=== PATIENT | male | born 1995 | race Caucasian/White ===

== ENCOUNTER 2017-08-24 08:50 | Observation (INO) ==
[2017-08-24] MEDS ORDERED: 0.9 % Sodium Chloride 1,000 ML IVC ONE ×2 (08:59→10:27)
[2017-08-24] MEDS ORDERED: *HR* LORazepam 2 MG/ML VIAL IVP ONE ×4 (09:00→10:51)
--- NOTE | 2017-08-24 09:01 | Emergency Department Note ---
Disposition Clinical Impression: Rhabdomyolysis Qualifiers: Rhabdomyolysis type: traumatic Encounter type: initial encounter Qualified Code (s): T79.6XXA - Traumatic ischemia of muscle, initial encounter Alcohol intoxication Qualifiers: Complication of substance-induced condition: uncomplicated Qualified Code(s): F10.920 - Alcohol use, unspecified with intoxication, uncomplicated Disposition: Admitted As Inpatient Condition: Fair General Adult HPI - General Chief complaint: ED Overdose Stated complaint: OD Source: EMS Nursing Notes Reviewed: Yes Vital Signs Reviewed: Yes - History of Present Illness HPI Narrative: 21-year-old male presents emergency department with concern for being found down. Patient was found lying on the ground this morning. Unknown amount of time being down. Patient was sluggish to respond so EMS gave patient 2 mg of Narcan. Stated that he did not have much of response to that, but did become a little more alert. Patient alert now [facility] EMS and has been speaking comfortably per them. EMS place still intoxicated. Patient states he is not hurting anywhere. Denies any his head. He does not remember what happened though. States he drinks alcohol but denies any drug use. Pain Scale: 0 - Related Data Home Medications Medication Instructions Recorded Confirmed No Known Home Drugs 08/24/17 08/24/17 Allergies Allergy/AdvReac Type Severity Reaction Status Date / Time Penicillins Allergy Rash Verified 08/24/17 09:16 All systems ED: reviewed and negative except as stated. Review of Systems: As Per HPI Constitutional: Denies: fever Cardiovascular: Denies: chest pain, palpitations Respiratory: Denies: cough, dyspnea Gastrointestinal: Denies: abdominal pain, nausea, vomiting Genitourinary: Denies: urgency, dysuria, frequency Musculoskeletal: Denies: back pain Neurological: Denies: headache Past Medical History - Past Medical History Medical history: Reports: no medical history Psychiatric history: Reports: no psych history - Social History Smoking Status: Current every day smoker Physical Exam - General General appearance: alert, appears intoxicated - Head Head exam: atraumatic, normocephalic - Eye Eye exam: Present: PERRL, EOMI - ENT ENT exam: normal exam, normal oropharynx - Neck Neck exam: Present: trachea midline - Chest Chest inspection: Present: normal inspection, symmetric chest wall rise - Respiratory Respiratory exam: Present: normal lung sounds bilaterally. Absent: respiratory distress - Cardiovascular Cardiovascular exam: Present: normal rhythm, tachycardia - Neurological Exam Neurological exam: Present: alert, CN II-XII intact, other (GCS 14 alert and oriented to person and place, but not time) - Skin Skin exam: Present: warm, dry, intact Course Vital Signs Temperature 99 F 08/24/17 08:52 Pulse Rate 126 08/24/17 08:52 Respiratory Rate 18 08/24/17 08:52 Blood Pressure 127/101 08/24/17 08:52 O2 Sat by Pulse Oximetry 95 08/24/17 08:52 Temperature 98.2 F 08/24/17 11:47 Pulse Rate 116 08/24/17 11:47 Respiratory Rate 15 08/24/17 11:47 Blood Pressure 121/73 08/24/17 11:47 O2 Sat by Pulse Oximetry 94 08/24/17 11:48 Oxygen Delivery Oxygen Delivery Room Air Medical Decision Making - MDM Narrative Medical decision making narrative: 21-year-old male presents emergency department with concern for altered mental status. Patient was alert and oriented to person and place, but not time. Patient was able to protect airway. He was able to handle his secretions. No focal neurologic deficits. CT of the head and neck were obtained and were within normal limits. C-spine precautions were started prior to exam and patient's C-spine was cleared. Chest x-ray was negative for any signs of ischemia. Patient was tachycardic here. We gave fluids. Patient has serum creatinine kinase that was elevated at 1291. Creatinine function was normal. Mild elevations of his AST which would be consistent with acute ethanol ingestion. EtOH was 306. Patient was admitted for both altered mental status and intoxication as well as rhabdomyolysis. Hospitalist agrees that admission. Told the patient of him needing to be admitted. Patient was agitated at times in the emergency department. We did give him Ativan at times. Patient was given 2 L of normal saline here in the emergency department Cervical Spine CT 08/24/17 08:56 IMPRESSION: No acute abnormality of the cervical spine. D/ / Obinna Alanis MD / Obinna Alanis MD Interpreting Provider: Obinna Alanis MD Head CT 08/24/17 08:56 IMPRESSION: Negative CT brain with no acute intracranial abnormality. Incidental right maxillary sinus disease as described. D/ / Abhishek Palumbo MD / Abhishek Palumbo MD Interpreting Provider: Abhishek Palumbo MD Chest X-Ray 08/24/17 08:57 IMPRESSION: Unremarkable chest. D/ / Abhishek Palumbo MD / Abhishek Palumbo MD Interpreting Provider: Abhishek Palumbo MD Vital Signs Temperature 99 F 08/24/17 08:52 Pulse Rate 126 08/24/17 08:52 Respiratory Rate 18 08/24/17 08:52 Blood Pressure 127/101 08/24/17 08:52 O2 Sat by Pulse Oximetry 95 08/24/17 08:52 Temperature 98.2 F 08/24/17 11:47 Pulse Rate 116 08/24/17 11:47 Respiratory Rate 15 08/24/17 11:47 Blood Pressure 121/73 08/24/17 11:47 O2 Sat by Pulse Oximetry 94 08/24/17 11:48 Oxygen Delivery Oxygen Delivery Room Air - Lab Data Result diagrams: 08/24/17 09:19 08/24/17 09:19 Lab Results 08/24/17 08/24/17 08/24/17 Range/Units 09:09 09:09 09:19 WBC 8.9 (4.3-11.1) K/mcL RBC 5.13 (4.19-5.50) M/mcL Hgb 16.0 (12.9-16.9) g/dL Hct 45.1 (37.5-50.1) % MCV 87.9 (83.0-100.0) fL MCH 31.2 (28.0-33.3) pg MCHC 35.5 (31.6-35.5) g/dL RDW 12.9 (11.5-14.5) % Plt Count 305 (140-400) K/mcL MPV 9.4 (9.4-12.4) fL Immature Gran % 0.3 (0-4) % Seg Neutrophils % 75.9 % Lymphocytes % 16.7 % Monocytes % 5.7 % Eosinophils % 0.5 % Basophils % 0.9 % Neutrophils # 6.7 (1.6-8.9) K/mcL Lymphocytes # 1.5 (0.6-4.6) K/mcL Monocytes # 0.5 (0.0-1.3) K/mcL Eosinophils # 0.0 (0.0-0.6) K/mcL Basophils # 0.1 (0.0-0.2) K/mcL PT (9.4-12.1) Seconds INR D-Dimer (0-500) ng/mLFEU Sodium (136-145) mEq/L Potassium (3.5-5.1) mEq/L Chloride (98-107) mEq/L Carbon Dioxide (23-29) mEq/L BUN (6-20) mg/dL Creatinine (0.70-1.30) mg/dL Est GFR ( Amer) (> 60) Est GFR (Non-Af Amer) (> 60) BUN/Creatinine Ratio (6-26) Glucose (70-105) mg/dL Calculated Osmolality (280-300) Calcium (8.6-10.3) mg/dL Phosphorus (2.7-4.5) mg/dL Magnesium (1.6-2.6) mg/dL Total Bilirubin (0.3-1.0) mg/dL AST (13-39) Units/L ALT (7-52) Units/L Alkaline Phosphatase (34-104) Units/L Creatine Kinase (30-223) Units/L Serum Total Protein (6.4-8.9) g/dL Albumin (3.5-5.7) g/dL Globulin (2.4-3.5) g/dL Albumin/Globulin Ratio (1.1-2.2) Amylase (29-103) Units/L Lipase (11-82) Units/L Urine Color Yellow (Yellow) Urine Clarity Clear (Clear) Urine pH 5.5 (5.0-8.0) pH Units Ur Specific [place] 1.016 (1.010-1.025) Urine Protein Negative (Neg-Trace) mg/dL Urine Glucose (UA) Normal (Normal) mg/dL Urine Ketones Negative (Negative) mg/dL Urine Blood Small H (Negative) Urine Nitrite Negative (Negative) Urine Bilirubin Negative (Negative) Urine Urobilinogen Normal (Normal) mg/dL Ur Leukocyte Esterase Negative (Negative) Urine Microscopic RBC 0-3 (0-3) per hpf Urine Microscopic WBC 0-3 (0-3) per hpf Ur Squamous Epith Cells None Seen (None-Few) per lpf Urine Bacteria None Seen (None-Few) per hpf Hyaline Casts None Seen (None-Few) per lpf Ur Culture Indicated? NO (NO) Urine Opiates Screen Negative (Vxhgqd=873) ng/mL Ur Barbiturates Screen Negative (Qctirm=563) ng/mL Ur Phencyclidine Scrn Negative (Cutoff=25) ng/mL Ur Amphetamines Screen Negative (Acimjp=7603) ng/mL U Benzodiazepines Scrn Negative (Mvhwfc=667) ng/mL Urine Cocaine Screen Negative (Cutoff= 300) ng/mL U Marijuana (THC) Screen Negative (Cutoff = 50) ng/mL Ethyl Alcohol (Less than 10) mg/dL 08/24/17 08/24/17 Range/Units 09:19 09:39 WBC (4.3-11.1) K/mcL RBC (4.19-5.50) M/mcL Hgb (12.9-16.9) g/dL Hct (37.5-50.1) % MCV (83.0-100.0) fL MCH (28.0-33.3) pg MCHC (31.6-35.5) g/dL RDW (11.5-14.5) % Plt Count (140-400) K/mcL MPV (9.4-12.4) fL Immature Gran % (0-4) % Seg Neutrophils % % Lymphocytes % % Monocytes % % Eosinophils % % Basophils % % Neutrophils # (1.6-8.9) K/mcL Lymphocytes # (0.6-4.6) K/mcL Monocytes # (0.0-1.3) K/mcL Eosinophils # (0.0-0.6) K/mcL Basophils # (0.0-0.2) K/mcL PT 12.4 H (9.4-12.1) Seconds INR 1.1 D-Dimer 218 (0-500) ng/mLFEU Sodium 141 (136-145) mEq/L Potassium 3.5 (3.5-5.1) mEq/L Chloride 108 H (98-107) mEq/L Carbon Dioxide 21 L (23-29) mEq/L BUN 9 (6-20) mg/dL Creatinine 0.86 (0.70-1.30) mg/dL Est GFR ( Amer) > 60 (> 60) Est GFR (Non-Af Amer) > 60 (> 60) BUN/Creatinine Ratio 10 (6-26) Glucose 109 H (70-105) mg/dL Calculated Osmolality 291 (280-300) Calcium 8.7 (8.6-10.3) mg/dL Phosphorus 3.6 (2.7-4.5) mg/dL Magnesium 2.1 (1.6-2.6) mg/dL Total Bilirubin 0.4 (0.3-1.0) mg/dL AST 42 H (13-39) Units/L ALT 32 (7-52) Units/L Alkaline Phosphatase 83 (34-104) Units/L Creatine Kinase 1291 H (30-223) Units/L Serum Total Protein 7.4 (6.4-8.9) g/dL Albumin 4.7 (3.5-5.7) g/dL Globulin 2.7 (2.4-3.5) g/dL Albumin/Globulin Ratio 1.7 (1.1-2.2) Amylase 36 (29-103) Units/L Lipase 41 (11-82) Units/L Urine Color (Yellow) Urine Clarity (Clear) Urine pH (5.0-8.0) pH Units Ur Specific [place] (1.010-1.025) Urine Protein (Neg-Trace) mg/dL Urine Glucose (UA) (Normal) mg/dL Urine Ketones (Negative) mg/dL Urine Blood (Negative) Urine Nitrite (Negative) Urine Bilirubin (Negative) Urine Urobilinogen (Normal) mg/dL Ur Leukocyte Esterase (Negative) Urine Microscopic RBC (0-3) per hpf Urine Microscopic WBC (0-3) per hpf Ur Squamous Epith Cells (None-Few) per lpf Urine Bacteria (None-Few) per hpf Hyaline Casts (None-Few) per lpf Ur Culture Indicated? (NO) Urine Opiates Screen (Elshyj=996) ng/mL Ur Barbiturates Screen (Besjza=390) ng/mL Ur Phencyclidine Scrn (Cutoff=25) ng/mL Ur Amphetamines Screen (Aziyxk=0874) ng/mL U Benzodiazepines Scrn (Lrokly=883) ng/mL Urine Cocaine Screen (Cutoff= 300) ng/mL U Marijuana (THC) Screen (Cutoff = 50) ng/mL Ethyl Alcohol 306 H (Less than 10) mg/dL - EKG Data EKG #1 EKG attestation: Yes I reviewed and interpreted this EKG. EKG results narrative: 8:51 Ventricular rate 120 bpm, TN interval 170 ms, QRS duration 108 ms, QT 300 ms, QTC 372 ms, normal axis. Sinus tachycardia with a ventricular rate of 120 bpm. There is no evidence of any ischemic ST changes noted on this electrocardiogram. No previous study to compare this to.
[2017-08-24 09:18] LABS: Bilirubin,Urine Negative (Negative); Blood,Urine Small (Negative); Clarity,Urine Clear (Clear); Color,Urine Yellow (Yellow); Glucose,Urine (UA) Normal (Normal); Ketones,Urine Negative (Negative); Leukocyte Esterase,Urine Negative (Negative); Nitrite,Urine Negative (Negative); PH,Urine 5.5 pH Units (5.0-8.0); Protein,Urine Negative (Neg-Trace); Specific Gravity,Urine 1.016 (1.010-1.025); Urobilinogen,Urine Normal (Normal)
[2017-08-24 09:21] LABS: Bacteria,Urine None Seen per hpf (None-Few); Hyaline Casts,Urine None Seen per lpf (None-Few); RBC,Urine 0-3 per hpf (0-3); Squamous Epithelial Cell,Urine None Seen per lpf (None-Few); WBC,Urine 0-3 per hpf (0-3)
[2017-08-24 09:39] LABS: Basophils # 0.1 K/mcL (0.0-0.2); Basophils % 0.9 %; Eosinophils % 0.5 %; Hematocrit 45.1 % (37.5-50.1); Immature Granulocytes % 0.3 % (0-4); Lymphocytes # 1.5 K/mcL (0.6-4.6); Lymphocytes % 16.7 %; Mean Corpuscular HGB Conc 35.5 g/dL (31.6-35.5); Mean Corpuscular Hemoglobin 31.2 pg (28.0-33.3); Mean Corpuscular Volume 87.9 fL (83.0-100.0); Mean Platelet Volume 9.4 fL (9.4-12.4); Monocytes # 0.5 K/mcL (0.0-1.3); Monocytes % 5.7 %; Neutrophils # 6.7 K/mcL (1.6-8.9); Platelet Count 305 K/mcL (140-400); Red Blood Count 5.13 M/mcL (4.19-5.50); Red Cell Distribution Width 12.9 % (11.5-14.5); Segmented Neutrophils % 75.9 %
[2017-08-24 09:55] LABS: Alanine Aminotransferase 32 Units/L (7-52); Albumin 4.7 g/dL (3.5-5.7); Albumin/Globulin Ratio 1.7 (1.1-2.2); Alkaline Phosphatase 83 Units/L (34-104); Aspartate Amino Transferase 42 Units/L (13-39); BUN/Creatinine Ratio 10 (6-26); Bilirubin,Total 0.4 mg/dL (0.3-1.0); Blood Urea Nitrogen 9 mg/dL (6-20); Calcium 8.7 mg/dL (8.6-10.3); Carbon Dioxide 21 mEq/L (23-29); Chloride 108 mEq/L (98-107); Creatine Kinase 1291 Units/L (30-223); Globulin 2.7 g/dL (2.4-3.5); Glucose 109 mg/dL (70-105); Lipase 41 Units/L (11-82); Osmolality,Calculated 291 (280-300); Potassium 3.5 mEq/L (3.5-5.1); Sodium 141 mEq/L (136-145); Total Protein 7.4 g/dL (6.4-8.9); eGFR For African Americans > 60 (> 60); eGFR For Non-African Americans > 60 (> 60)
--- NOTE | 2017-08-24 10:51 | Emergency Department Note ---
Disposition Clinical Impression: Rhabdomyolysis Qualifiers: Rhabdomyolysis type: traumatic Encounter type: initial encounter Qualified Code (s): T79.6XXA - Traumatic ischemia of muscle, initial encounter Alcohol intoxication Qualifiers: Complication of substance-induced condition: with delirium Qualified Code(s): F10.921 - Alcohol use, unspecified with intoxication delirium Disposition: Admitted As Inpatient Condition: Fair Forms: ED Satisfaction Letter General Adult HPI - General Chief complaint: ED Overdose Stated complaint: ETOH Time Seen by Provider: 08/24/17 09:11 Source: EMS Mode of arrival: ambulatory Limitations: no limitations Nursing Notes Reviewed: Yes Vital Signs Reviewed: Yes - History of Present Illness Pain Scale: 0 - Related Data Home Medications Medication Instructions Recorded Confirmed No Known Home Drugs 08/24/17 08/24/17 Allergies Allergy/AdvReac Type Severity Reaction Status Date / Time Penicillins Allergy Rash Verified 08/24/17 09:16 Past Medical History - Past Medical History Medical history: Reports: no medical history Psychiatric history: Reports: no psych history - Social History Smoking Status: Current every day smoker Physical Exam - General General appearance: alert Course Vital Signs Temperature 99 F 08/24/17 08:52 Pulse Rate 126 08/24/17 08:52 Respiratory Rate 18 08/24/17 08:52 Blood Pressure 127/101 08/24/17 08:52 O2 Sat by Pulse Oximetry 95 08/24/17 08:52 Temperature 0 F L 08/24/17 09:13 Pulse Rate 105 08/24/17 10:00 Respiratory Rate 14 08/24/17 10:00 Blood Pressure 150/85 08/24/17 10:00 O2 Sat by Pulse Oximetry 97 08/24/17 10:00 Oxygen Delivery Oxygen Delivery Room Air Medical Decision Making - Lab Data Result diagrams: 08/24/17 09:19 08/24/17 09:19 Lab Results 08/24/17 08/24/17 08/24/17 Range/Units 09:09 09:19 09:19 WBC 8.9 (4.3-11.1) K/mcL RBC 5.13 (4.19-5.50) M/mcL Hgb 16.0 (12.9-16.9) g/dL Hct 45.1 (37.5-50.1) % MCV 87.9 (83.0-100.0) fL MCH 31.2 (28.0-33.3) pg MCHC 35.5 (31.6-35.5) g/dL RDW 12.9 (11.5-14.5) % Plt Count 305 (140-400) K/mcL MPV 9.4 (9.4-12.4) fL Immature Gran % 0.3 (0-4) % Seg Neutrophils % 75.9 % Lymphocytes % 16.7 % Monocytes % 5.7 % Eosinophils % 0.5 % Basophils % 0.9 % Neutrophils # 6.7 (1.6-8.9) K/mcL Lymphocytes # 1.5 (0.6-4.6) K/mcL Monocytes # 0.5 (0.0-1.3) K/mcL Eosinophils # 0.0 (0.0-0.6) K/mcL Basophils # 0.1 (0.0-0.2) K/mcL D-Dimer (0-500) ng/mLFEU Sodium 141 (136-145) mEq/L Potassium 3.5 (3.5-5.1) mEq/L Chloride 108 H (98-107) mEq/L Carbon Dioxide 21 L (23-29) mEq/L BUN 9 (6-20) mg/dL Creatinine 0.86 (0.70-1.30) mg/dL Est GFR ( Amer) > 60 (> 60) Est GFR (Non-Af Amer) > 60 (> 60) BUN/Creatinine Ratio 10 (6-26) Glucose 109 H (70-105) mg/dL Calculated Osmolality 291 (280-300) Calcium 8.7 (8.6-10.3) mg/dL Total Bilirubin 0.4 (0.3-1.0) mg/dL AST 42 H (13-39) Units/L ALT 32 (7-52) Units/L Alkaline Phosphatase 83 (34-104) Units/L Creatine Kinase 1291 H (30-223) Units/L Serum Total Protein 7.4 (6.4-8.9) g/dL Albumin 4.7 (3.5-5.7) g/dL Globulin 2.7 (2.4-3.5) g/dL Albumin/Globulin Ratio 1.7 (1.1-2.2) Lipase 41 (11-82) Units/L Urine Color Yellow (Yellow) Urine Clarity Clear (Clear) Urine pH 5.5 (5.0-8.0) pH Units Ur Specific [place] 1.016 (1.010-1.025) Urine Protein Negative (Neg-Trace) mg/dL Urine Glucose (UA) Normal (Normal) mg/dL Urine Ketones Negative (Negative) mg/dL Urine Blood Small H (Negative) Urine Nitrite Negative (Negative) Urine Bilirubin Negative (Negative) Urine Urobilinogen Normal (Normal) mg/dL Ur Leukocyte Esterase Negative (Negative) Urine Microscopic RBC 0-3 (0-3) per hpf Urine Microscopic WBC 0-3 (0-3) per hpf Ur Squamous Epith Cells None Seen (None-Few) per lpf Urine Bacteria None Seen (None-Few) per hpf Hyaline Casts None Seen (None-Few) per lpf Ur Culture Indicated? NO (NO) 08/24/17 Range/Units 09:39 WBC (4.3-11.1) K/mcL RBC (4.19-5.50) M/mcL Hgb (12.9-16.9) g/dL Hct (37.5-50.1) % MCV (83.0-100.0) fL MCH (28.0-33.3) pg MCHC (31.6-35.5) g/dL RDW (11.5-14.5) % Plt Count (140-400) K/mcL MPV (9.4-12.4) fL Immature Gran % (0-4) % Seg Neutrophils % % Lymphocytes % % Monocytes % % Eosinophils % % Basophils % % Neutrophils # (1.6-8.9) K/mcL Lymphocytes # (0.6-4.6) K/mcL Monocytes # (0.0-1.3) K/mcL Eosinophils # (0.0-0.6) K/mcL Basophils # (0.0-0.2) K/mcL D-Dimer 218 (0-500) ng/mLFEU Sodium (136-145) mEq/L Potassium (3.5-5.1) mEq/L Chloride (98-107) mEq/L Carbon Dioxide (23-29) mEq/L BUN (6-20) mg/dL Creatinine (0.70-1.30) mg/dL Est GFR ( Amer) (> 60) Est GFR (Non-Af Amer) (> 60) BUN/Creatinine Ratio (6-26) Glucose (70-105) mg/dL Calculated Osmolality (280-300) Calcium (8.6-10.3) mg/dL Total Bilirubin (0.3-1.0) mg/dL AST (13-39) Units/L ALT (7-52) Units/L Alkaline Phosphatase (34-104) Units/L Creatine Kinase (30-223) Units/L Serum Total Protein (6.4-8.9) g/dL Albumin (3.5-5.7) g/dL Globulin (2.4-3.5) g/dL Albumin/Globulin Ratio (1.1-2.2) Lipase (11-82) Units/L Urine Color (Yellow) Urine Clarity (Clear) Urine pH (5.0-8.0) pH Units Ur Specific [place] (1.010-1.025) Urine Protein (Neg-Trace) mg/dL Urine Glucose (UA) (Normal) mg/dL Urine Ketones (Negative) mg/dL Urine Blood (Negative) Urine Nitrite (Negative) Urine Bilirubin (Negative) Urine Urobilinogen (Normal) mg/dL Ur Leukocyte Esterase (Negative) Urine Microscopic RBC (0-3) per hpf Urine Microscopic WBC (0-3) per hpf Ur Squamous Epith Cells (None-Few) per lpf Urine Bacteria (None-Few) per hpf Hyaline Casts (None-Few) per lpf Ur Culture Indicated? (NO) Attestation Statement - Attestation Attestation: I, Maximus Cochran, examined this patient and my medical decision-making was reviewed with the DIRECTOR OF MARKETING COMMUNICATIONS/PA/Advanced Practice Nurse/Resident Physician. I agree with the documented findings, disposition and treatment plan as described except to the extent set forth below. 21-year-old male brought to the emergency department by EMS after [place]. Patient was drinking EtOH throughout the night, denies other illicit drug use. EMS stated that he was minimally responsive on initial evaluation, they gave Narcan and he gradually improved during the ride to the emergency department Patient is unable to give a history regarding his case and presentation as he does not remember anything past 9:30 at night. There are multiple ants crawling on the patient as he was laying on top of an ant hill. There is no other external evidence of trauma. CT of the head and neck was negative for acute fracture or intracranial hemorrhage. Laboratory evaluation showed an elevation of his CPK. Patient likely has mild rhabdomyolysis. He will be admitted for IV hydration and metabolism of EtOH.
[2017-08-24] MEDS ORDERED: *HR* Promethazine 25 MG/ML VIAL IVP PRN (11:06)
[2017-08-24] MEDS ORDERED: diazePAM 10 MG/2 ML SYRINGE IVP PRN ×5 (11:06)
[2017-08-24] MEDS ORDERED: Naloxone 0.4 MG/ML INJ IVP PRN (11:10)
[2017-08-24] MEDS ORDERED: Thiamine (B-1) 100 MG TABLET PO SCH (11:15)
[2017-08-24] MEDS ORDERED: Ringers Solution, Lactated 1,000 ML IVC SCH (11:15)
[2017-08-24] MEDS ORDERED: Folic Acid 1 MG TABLET PO SCH (11:15)
--- NOTE | 2017-08-24 11:22 | Internal Med History&Physical ---
Date of Encounter: 08/24/17 Time of Encounter: 11:15 Internal Medicine - H&P: HPI Chief complaint: alcohol intoxication and possible withdrawal Admitted From: Home Plans for Post Hospital Care: Home History of present illness: Mr. Barron is a 21 year old male who has no significant medical history, he was brought by EMS after he was found on the ground at a camp site. Patient was drinking EtOH throughout the night, denies other illicit drug use. EMS stated that he was minimally responsive on initial evaluation, they gave Narcan and he gradually improved during the ride to the emergency department. When I saw the patient he is alert oriented 3. Patient reported that he has been drinking 10- 20 beers daily over last year. He has been drinking whole night last night. He denies other drug use, he also chewing tobacco as well. . The he is shaking now, heart rate to 110. But denies sweats, abdominal pain. He denies any other injury. CT of head is negative. no open wound. Lab was unremarkable except CK 1291. Patient denies any other medical history. He is a not taking any prescription medications. Patient is going to be admitted for syncopal possible alcohol intoxication, alcohol withdrawal. Tobacco abuse. The possible mild rhabdomyolysis. Will place CIWA protocol IV fluids , thiamine folic acid and will add is scheduled to diazepam. Drug screen is pending now Past Med Surg Social Fam HX - Past Medical History Medical history: no medical history Psychiatric history: no psych history - Social History Smoking Status: Current every day smoker Internal Medicine - H&P: Meds No Known Home Drugs 08/24/17 [History] 3 Allergy/AdvReac Type Severity Reaction Status Date / Time Penicillins Allergy Rash Verified 08/24/17 09:16 All Systems PM: A 10-system review of systems was performed and is negative for pertinent findings except as documented above in the HPI. - Constitutional Vitals: Temp Pulse Resp BP Pulse Ox 0 F L 100 18 133/96 95 08/24/17 09:13 08/24/17 10:50 08/24/17 10:50 08/24/17 10:50 08/24/17 10:50 General appearance: Present: A&O X 3, obese Exam: CONSTITUTIONAL: Patient appears as an age appropriate male well developed, in no acute distress. EYES Clear sclerae, bilateral pupils are equal, reactive to light and accommodation. Extraocular movements are intact RESPIRATORY: No accessory muscle use, bilateral clear to auscultation, no wheezing, no crackles/rales. CARDIOVASCULAR: Regular heart rate, normal S1 and S2, no murmurs GASTROINTESTINAL: bowel sounds present, soft, no tenderness. No hepatosplenomegaly. No bilateral CVA tenderness MUSCULOSKELETAL: Joints in normal range of motion, no clubbing, no edema, no cyanosis. Bilateral peripheral pulses 2+ LYMPHATIC no lymphadenopathy in neck, groin and axilla bilaterally, no thyromegaly. NEUROLOGIC: CN II to XII are grossly intact, no focal neurological deficit. Deep tendon reflexes 2+ bilaterally. Normal light touch sensation to upper and lower extremity PSYCHIATRIC: Oriented x3, with good insight, mood is euthymic. No hallucinations or delusions. SKIN: Skin warm and dry, no rashes, no open wound. Internal Med - H&P Results - Labs CBC & Chem 7: 08/24/17 09:19 08/24/17 09:19 Labs: Short CBC 08/24/17 Range/Units 09:19 WBC 8.9 (4.3-11.1) K/mcL Hgb 16.0 (12.9-16.9) g/dL Hct 45.1 (37.5-50.1) % Plt Count 305 (140-400) K/mcL Neutrophils # 6.7 (1.6-8.9) K/mcL BMP 08/24/17 09:19 Sodium 141 Potassium 3.5 Chloride 108 H Carbon Dioxide 21 L BUN 9 Creatinine 0.86 Glucose 109 H Calcium 8.7 Liver Function 08/24/17 Range/Units 09:19 Total Bilirubin 0.4 (0.3-1.0) mg/dL AST 42 H (13-39) Units/L ALT 32 (7-52) Units/L Alkaline Phosphatase 83 (34-104) Units/L Albumin 4.7 (3.5-5.7) g/dL Urine 08/24/17 Range/Units 09:09 Urine Color Yellow (Yellow) Urine Clarity Clear (Clear) Urine pH 5.5 (5.0-8.0) pH Units Ur Specific [place] 1.016 (1.010-1.025) Urine Protein Negative (Neg-Trace) mg/dL Urine Glucose (UA) Normal (Normal) mg/dL - Impressions ITS Impressions Cervical Spine CT 08/24/17 08:56 IMPRESSION: No acute abnormality of the cervical spine. D/ / Obinna Alanis MD / Obinna Alanis MD Interpreting Provider: Obinna Alanis MD Head CT 08/24/17 08:56 IMPRESSION: Negative CT brain with no acute intracranial abnormality. Incidental right maxillary sinus disease as described. D/ / Abhishek Palumbo MD / Abhishek Palumbo MD Interpreting Provider: Abhishek Palumbo MD Chest X-Ray 08/24/17 08:57 IMPRESSION: Unremarkable chest. D/ / Abhishek Palumbo MD / Abhishek Palumbo MD Interpreting Provider: Abhishek Palumbo MD - Assessment and plan (1) Alcohol withdrawal Current Visit: Yes Status: Acute Assessment and plan: Patient has been drinking 10-20 beers daily, he drank whole night last night. But he has actively shaking and the heartrate a 110 likely is withdrawing. We will continue CWIA protocol and the scheduled diazepam, and thiamine and a folic acid Consult to social work Qualifiers: Complication of substance-induced condition: uncomplicated Qualified Code(s ): F10.230 - Alcohol dependence with withdrawal, uncomplicated (2) Tobacco abuse Current Visit: Yes Status: Chronic Assessment and plan: He joints tobacco, declined nicotine patch (3) Alcohol intoxication Current Visit: Yes Status: Acute Assessment and plan: Patient was found down likely from alcohol intoxication, had a CT is negative. He denies loss of bowel or any urine control. CT C-spine is negative Negative chest x-ray Qualifiers: Complication of substance-induced condition: uncomplicated Qualified Code(s ): F10.920 - Alcohol use, unspecified with intoxication, uncomplicated (4) Rhabdomyolysis Current Visit: Yes Status: Acute Assessment and plan: CK is 1294, we will continue IV fluids follow up with a.m. Qualifiers: Rhabdomyolysis type: traumatic Encounter type: initial encounter Qualified Code(s): T79.6XXA - Traumatic ischemia of muscle, initial encounter - Time Spent With Patient Total time spent is greater than 50% in coordination of care (as documented) at patient's floor/unit and/or counseling patient:
[2017-08-24 11:23] LABS: Amylase 36 Units/L (29-103); Ethanol 306 mg/dL (Less than 10)
[2017-08-24 11:29] LABS: Magnesium 2.1 mg/dL (1.6-2.6); Phosphorous 3.6 mg/dL (2.7-4.5)
[2017-08-24] MEDS ORDERED: *HR* LORazepam 2 MG/ML VIAL IVP PRN ×2 (11:29)
[2017-08-24 11:34] LABS: INR 1.1; Prothrombin Time 12.4 Seconds (9.4-12.1)
[2017-08-24 12:34] LABS: Amphetamine Screen,Urine Negative ng/mL (Cutoff=1000); Barbiturate Screen,Urine Negative ng/mL (Cutoff=200); Benzodiazepines Screen,Urine Negative ng/mL (Cutoff=200); Cannabinoid Screen,Urine Negative ng/mL (Cutoff = 50); Cocaine Screen,Urine Negative ng/mL (Cutoff= 300); Opiate Screen,Urine Negative ng/mL (Cutoff=300); Phencyclidine Screen,Urine Negative ng/mL (Cutoff=25)
[2017-08-24] MEDS: diazePAM 10 MG TABLET PO SCH (15:21)
[2017-08-24 18:31] VITALS: BP 146/85
--- NOTE | 2017-08-24 18:38 | Event Note ---
Date of Encounter: 08/24/17 Time of Encounter: 18:12 Alerted by pts. nurse Joshua RN that pt. was wanting to leave AMA. Went to assess pt. who was pacing the halls and anxious. Asked pt. to go back to his room so we could talk. Nurse Joshua followed. Pt. stated that he was wanting to leave to go to the [facility] to find his phone and wallet which were missing. Pt. was found face-down and unconscious yesterday and brought to the [facility] ED. Blood alcohol was 306 on admission. CK 1291. Drug screen negative. Pt. has bruise on left forehead and clothes are disheveled and dirty, most likely from passing out on the ground for unknown period of time. Pt. does not recall incident. I explained to Mr. Barron that leaving at this time was against my medical advice d/t his high blood alcohol level, being found unconscious, and current agitation/anxiety. I explained that a blood alcohol level of this magnitude can have residual effects of syncope and even risk of . Pt. expressed understanding to what I was telling him but stated he was leaving to go [place]. I again stated the risks and that this was against my professional advice. I had the pt. confirm that he was understanding what I was saying which he verbalized as yes. Instructed nurse to get a set of vital signs which were: Temp 99.3F, HR 110, RR 16, BP 146/ 85, and SpO2 95% on RA. Nurse will have pt. sign AMA paperwork. Pt. instructed to return if his sx begin to worsen or status deteriorates. Nurse provided pt. w /information regarding alcohol withdrawal and rhabdomyolysis prior to leaving AMA.
[2017-08-25] MEDS ORDERED: Vitamin B Complex/Vit C/Vit E 1 EACH TABLET PO SCH (09:00)
--- NOTE | 2017-08-27 06:48 | Electrocardiograph Report ---
[address] [address] Test Date: 2017-08-24 Pat Name: Saulo Barron Department: 103 Room: 3B44 Gender: M [employer] Tender: AM : 1995 Requested By: Reynaldo Maguire Order Number: [id number] Reading MD: Herrera Lebron Measurements Intervals [place] Rate: 120 P: 36 SC: 170 QRS: 69 QRSD: 108 T: -18 QT: 300 QTc: 372 Interpretive Statements SINUS TACHYCARDIA Poor R wave progression Electronically Signed On 08-27-2017 6:46:20 EDT by Herrera Lebron
== END 2017-08-24 18:50 | disposition left against medical advice (07) ==
LOC: EMEROO 08:50 → 3BNU 08:50
PROVIDERS: ADMIT Hospitalist; ATTEND Hospitalist